=== PATIENT | male | born 1945 | race Caucasian/White ===

== ENCOUNTER 2016-12-03 11:46 | Inpatient (IN) | payer MEDICAID ==
[~2016-12-03] VITALS: Ht 172.7 cm; Wt 79.5 kg
[~2016-12-03 11:46] MED LIST: AMLODIPINE BESYL5 M1 PO; APR25 PO; CAT0.1 PO; COZAAR50 MG PO; FERL PO; GLU5 PO; L40 PO; PLE5 PO; PRI20 PO; THERAGRAN-M1 TA4 PO
[2016-12-03 12:35] LABS: BASOPHIL % 0.4 % (0-2); PLATELET COUNT 238 x10^3mcL (130-400); RED CELL DISTRIBUTION WIDTH 13.1 % (11.5-14.5)
[2016-12-03 13:05] LABS: ALBUMIN 3.4 g/dL (3.4-5.0); ALKALINE PHOSPHATASE 108 U/L (46-116); ALT/SGPT 14 U/L (16-63); AMYLASE 51 U/L (25-115); AST/SGOT 14 U/L (15-37); BILIRUBIN TOTAL 0.4 mg/dL (0.20-1.00); CALCIUM 8.3 mg/dL (8.5-10.1); CARBON DIOXIDE 29.1 mmol/L (21-32); CHLORIDE SERUM 90 mmol/L (98-107); GLUCOSE SERUM 195 mg/dL (74-106); HDL CHOLESTEROL 41 mg/dL (40-60); LIPASE 146 IU/L (73-393); POTASSIUM SERUM 4.6 mmol/L (3.5-5.1); SODIUM SERUM 127 mmol/L (136-145); T4(THYROXINE) 6.6 ug/dL (4.7-13.3); TOTAL PROTEIN, SERUM 6.8 g/dL (6.4-8.2)
[2016-12-03 13:08] LABS: CHOLESTEROL 112 mg/dL (<200)
[2016-12-03 13:10] LABS: CREATININE SERUM 9.8 mg/dL (0.7-1.3)
[2016-12-03] MEDS ORDERED: COZAAR50 M1 PO (14:25)
[2016-12-03] MEDS ORDERED: NEU300 PO (14:26)
[2016-12-03] MEDS ORDERED: LOPERAMIDE HCL2 M1 PO (14:27)
[2016-12-03] MEDS ORDERED: NOR5 PO (14:27)
[2016-12-03] MEDS ORDERED: METOCLOPRAMIDE10 M2 PO (14:27)
[2016-12-03] MEDS ORDERED: GOOD SENSE OMEP20 MG PO (14:28)
[2016-12-03] MEDS ORDERED: DICLEGIS1 TCP PO (14:54)
[2016-12-03 15:03] LABS: MAGNESIUM 2.4 mg/dL (1.8-2.4); PHOSPHOROUS 2.6 mg/dL (2.5-4.9)
[2016-12-03 15:05] LABS: CHOLESTEROL/HDL RATIO 2.8
[2016-12-03] MEDS ORDERED: GLUCOTROL5 MG PO (15:07)
[2016-12-03 15:11] LABS: FREE T4 1.1 ng/dL (0.76-1.46); FREE THYROXINE INDEX 2.4 ug/dL (1.4-4.5); T4(THYROXINE) 6.7 ug/dL (4.7-13.3)
[2016-12-03 15:15] VITALS: BP 184/85
[2016-12-03 15:50] LABS: T3 TOTAL 0.68 ng/mL
[2016-12-03 16:27] VITALS: BP 182/80
[2016-12-03 18:33] VITALS: BP 177/85
[2016-12-03 20:05] VITALS: BP 156/69
[2016-12-04] VITALS (7 sets, daily range): BP systolic 114–183; BP diastolic 52–99
[2016-12-04 06:11] LABS: BASOPHIL % 0.5 % (0-2); PLATELET COUNT 236 x10^3mcL (130-400); RED CELL DISTRIBUTION WIDTH 13.5 % (11.5-14.5)
[2016-12-04 06:25] LABS: CALCIUM 7.9 mg/dL (8.5-10.1); CARBON DIOXIDE 29.2 mmol/L (21-32); CHLORIDE SERUM 101 mmol/L (98-107); GLUCOSE SERUM 98 mg/dL (74-106); POTASSIUM SERUM 3.8 mmol/L (3.5-5.1); SODIUM SERUM 137 mmol/L (136-145)
[2016-12-04 06:28] LABS: CREATININE SERUM 6.2 mg/dL (0.7-1.3)
[2016-12-05] VITALS (8 sets, daily range): BP systolic 145–176; BP diastolic 71–90
[2016-12-05 06:10] LABS: BASOPHIL % 0.5 % (0-2); PLATELET COUNT 233 x10^3mcL (130-400); RED CELL DISTRIBUTION WIDTH 13.1 % (11.5-14.5)
[2016-12-05 07:04] LABS: CALCIUM 8.3 mg/dL (8.5-10.1); CARBON DIOXIDE 29.7 mmol/L (21-32); CHLORIDE SERUM 97 mmol/L (98-107); GLUCOSE SERUM 194 mg/dL (74-106); MAGNESIUM 1.8 mg/dL (1.8-2.4); PHOSPHOROUS 3.2 mg/dL (2.5-4.9); POTASSIUM SERUM 3.5 mmol/L (3.5-5.1); SODIUM SERUM 134 mmol/L (136-145)
[2016-12-05 07:11] LABS: CREATININE SERUM 5.1 mg/dL (0.7-1.3)
[2016-12-06 05:41] VITALS: BP 143/86
[2016-12-06 06:30] LABS: BASOPHIL % 0.9 % (0-2); PLATELET COUNT 211 x10^3mcL (130-400); RED CELL DISTRIBUTION WIDTH 13.5 % (11.5-14.5)
[2016-12-06 06:52] LABS: CALCIUM 8.2 mg/dL (8.5-10.1); CARBON DIOXIDE 29.2 mmol/L (21-32); CHLORIDE SERUM 92 mmol/L (98-107); GLUCOSE SERUM 89 mg/dL (74-106); PHOSPHOROUS 2.9 mg/dL (2.5-4.9); POTASSIUM SERUM 4.2 mmol/L (3.5-5.1); SODIUM SERUM 129 mmol/L (136-145)
[2016-12-06 07:16] LABS: MAGNESIUM 1.8 mg/dL (1.8-2.4)
[2016-12-06 09:38] VITALS: BP 173/82
[2016-12-06 13:18] VITALS: BP 188/87
[2016-12-06 13:52] VITALS: BP 188/93
[2016-12-06 15:05] VITALS: BP 160/87
[2016-12-06 15:10] VITALS: BP 160/87
== END 2016-12-06 15:32 | disposition home or self-care (01) | DRG 247 ==
LOC: ED 11:46 → MU 14:08 → DU 14:08 → MU 12-06 08:14
PROVIDERS: Emergency Medicine; Family Medicine; ADMIT Family Medicine
DX: K56.7 Ileus, unspecified (principal); N17.0 Acute kidney failure with tubular necrosis; I12.0 Hypertensive chronic kidney disease with stage 5 chronic kidney disease or end stage renal disease; N18.6 End stage renal disease; D68.69 Other thrombophilia; E11.21 Type 2 diabetes mellitus with diabetic nephropathy; E11.319 Type 2 diabetes mellitus with unspecified diabetic retinopathy without macular edema; E87.1 Hypo-osmolality and hyponatremia; H54.8 Legal blindness, as defined in USA; D63.1 Anemia in chronic kidney disease; E87.8 Other disorders of electrolyte and fluid balance, not elsewhere classified; K59.00 Constipation, unspecified; H26.9 Unspecified cataract; Z99.2 Dependence on renal dialysis; Z68.27 Body mass index [BMI] 27.0-27.9, adult; Z79.84 Long term (current) use of oral hypoglycemic drugs
CPT/HCPCS: 83880; 84439; B4164; J0360; J2405; J3490; J7030; J7042; J7060; J8597; Q0092; Q9966; Q9967